=== PATIENT | male | born 1985 | race Caucasian/White ===

== ENCOUNTER 2018-01-01 06:37 | Emergency (ER) | payer SELFPAY ==
[~2018-01-01] VITALS: Ht 180.3 cm; Wt 125.6 kg
[2018-01-01 06:43] VITALS: Ht 180.3 cm; Wt 125.6 kg
[2018-01-01 08:10] VITALS: BP 129/74
== END 2018-01-01 08:10 | disposition home or self-care (01) ==
LOC: ED 06:37
DX: J20.9 Acute bronchitis, unspecified (principal)

== ENCOUNTER 2018-10-17 10:55 | Emergency (ER) | payer BC ==
[~2018-10-17] VITALS: Ht 180.3 cm; Wt 124.3 kg
[2018-10-17 10:58] VITALS: Ht 180.3 cm; Wt 124.3 kg
[2018-10-17 12:48] VITALS: BP 130/75
== END 2018-10-17 12:48 | disposition home or self-care (01) ==
LOC: ED 10:55
DX: M54.9 Dorsalgia, unspecified (principal); R10.9 Unspecified abdominal pain
CPT/HCPCS: J3010